=== PATIENT | male | born 1990 | race Caucasian/White ===

== ENCOUNTER 2018-06-12 14:15 | Emergency (ER) | payer SELFPAY ==
[2018-06-12 14:38] VITALS: BP 155/63
[2018-06-12] MEDS ORDERED: HYDROcodone/ACETAMIN 5-325 MG* 1 TAB PO ONE (14:46)
--- NOTE | 2018-06-12 14:46 | UC ---
Dental HPI - HPI Summary HPI Summary: pt c/o severe pain to his L lower tooth(points to anterior molar). states having episodes of pain to that tooth on and off for about 1-2 months. it became constant and severe last pm. taking tylenol with no relief. has another tooth pain to an upper tooth at times, unsure which tooth. no fever, headache or swelling. pt states he will have dental insurance the of year and plans to f/u then. - History of Current Complaint Chief Complaint: UCDentalProblem Stated Complaint: DENTAL PAIN Time Seen by Provider: 06/12/18 14:28 Hx Obtained From: Patient Pain Intensity: 10 - Allergies/Home Medications Allergies/Adverse Reactions: Allergies Allergy/AdvReac Type Severity Reaction Status Date / Time No Known Allergies Allergy Verified 06/12/18 14:33 PMH/Surg Hx/FS Hx/Imm Hx - Additional Past Medical History Additional PMH: " nervous tick" - Surgical History Surgical History: None - Family History Known Family History: Positive: Hypertension, Diabetes - Social History Alcohol Use: Occasionally Substance Use Type: None Smoking Status (MU): Never Smoked Tobacco Review of Systems All Other Systems Reviewed And Are Negative: Yes Constitutional: Positive: Negative Skin: Positive: Negative Eyes: Positive: Negative ENT: Positive: Dental Pain Respiratory: Positive: Negative Cardiovascular: Positive: Negative Gastrointestinal: Positive: Negative Genitourinary: Positive: Negative Motor: Positive: Negative Neurovascular: Positive: Negative Musculoskeletal: Positive: Negative Neurological: Positive: Negative Psychological: Positive: Negative Physical Exam Triage Information Reviewed: Yes Appearance: Pain Distress Vital Signs: Initial Vital Signs Temp 98.8 F 06/12/18 14:33 Pulse 73 06/12/18 14:33 Resp 18 06/12/18 14:33 BP 155/63 06/12/18 14:33 Pulse Ox 100 06/12/18 14:33 Vital Signs Reviewed: Yes Eyes: Positive: Conjunctiva Clear ENT: Positive: Pharynx normal, TMs normal. Negative: Nasal congestion, Nasal drainage Dental: Positive: Percussion Tenderness @ - Lateral L lower anterior molar only. Negative: Gross Decay/Caries @, Dental Fracture @, Abscess @ Neck: Positive: Supple, Nontender, No Lymphadenopathy Respiratory: Positive: Lungs clear, Normal breath sounds Cardiovascular: Positive: RRR, No Murmur Abdomen Description: Positive: Nontender, No Organomegaly, Soft Bowel Sounds: Positive: Present Musculoskeletal Exam: Normal Neurological: Positive: Alert Psychological: Positive: Age Appropriate Behavior Skin Exam: Normal Dental Complaint Course/Dx - Course Course Of Treatment: ISTOP= no prescriptions / narcotic prescriptions found. will cover for both pain and infection, need for dental f/u stressed and list of local providers given. - Differential Dx/Diagnosis Differential Diagnosis/Dx: Dental Abscess, Dental Caries, Fractured Tooth, Peridontic Disease Provider Diagnosis: Tooth ache Discharge - Sign-Out/Discharge Documenting (check all that apply): Patient Departure All imaging exams completed and their final reports reviewed: No Studies - Discharge Plan Condition: Stable Disposition: HOME Prescriptions: Amoxicillin PO (*) [Amoxicillin 500 MG CAP*] 500 mg PO TID 7 Days #21 cap HYDROcodone/ACETAMIN 5-325 MG* [Skipwith 5-325 TAB*] 1 tab PO Q6H PRN #15 tab MDD 4 PRN Reason: Pain - Severe Patient Education Materials: Toothache (ED) Referrals: No Primary Care Phys,NOPCP [Primary Care Provider] - Additional Instructions: FOLLOW UP WITH A DENTIST SOON POSSIBLE-LIST GIVEN - Billing Disposition and Condition Condition: STABLE Disposition: Home
[2018-06-12] MEDS ORDERED: Amoxicillin PO (*) 500 MG CAP PO ONE ×2 (14:47)
== END 2018-06-12 15:05 | disposition home or self-care (01) ==
LOC: UCCORT 14:15
DX: K08.89 Other specified disorders of teeth and supporting structures (principal)
CPT/HCPCS: 99213; A9270-GY; G0463

== ENCOUNTER 2019-02-22 17:00 | Emergency (ER) | payer OTHER ==
[2019-02-22 17:53] VITALS: BP 110/79
--- NOTE | 2019-02-22 18:31 | UC ---
Dental HPI - HPI Summary HPI Summary: 28 y/o male presents to the urgent care c/o RT lower dental pain and swelling around a molar filling on and off for the past 2 weeks. Symptoms worsen about 2 days ago w/ mild NASH. Pain w/ chewing is 4/10. Pt has jessica taking Tylenol PO to alleviate symptoms. Last dose taken was 1000mg PO around 1600pm w/ Oragel. Pt denies fever, trismus, dizziness, SOB, chest pain,a bdominal pain, N/V/D, sore throat. Pt has a Dentist appt next week. - History of Current Complaint Chief Complaint: UCDentalProblem Stated Complaint: TOOTH PAIN Time Seen by Provider: 02/22/19 18:07 Hx Obtained From: Patient Onset/Duration: Gradual Onset, Lasting Weeks - 2 weeks w/ on and off RT side lower dental pain, Still Present - today, Worse Since - 2 days ago Severity: Moderate Pain Intensity: 4 Pain Scale Used: 0-10 Numeric Aggravating Factor(s): Chewing Alleviating Factor(s): OTC Meds - tylenol PO last dose taken aroun [id number] - Allergies/Home Medications Allergies/Adverse Reactions: Allergies Allergy/AdvReac Type Severity Reaction Status Date / Time No Known Allergies Allergy Verified 02/22/19 17:50 PMH/Surg Hx/FS Hx/Imm Hx Previously Healthy: Yes - Pt denies PMHX - Surgical History Surgical History: None - Family History Known Family History: Positive: Hypertension, Diabetes - Social History Occupation: Employed Full-time Lives: With Family Alcohol Use: Occasionally Substance Use Type: None Smoking Status (MU): Never Smoked Tobacco Review of Systems All Other Systems Reviewed And Are Negative: Yes Constitutional: Positive: Negative Skin: Positive: Negative Eyes: Positive: Negative ENT: Positive: Dental Pain - Rt lower side dental pain w/ mild swelling around a filling Respiratory: Positive: Negative Cardiovascular: Positive: Negative Gastrointestinal: Positive: Negative Genitourinary: Positive: Negative Motor: Positive: Negative Neurovascular: Positive: Negative Musculoskeletal: Positive: Negative Neurological: Positive: Headache - mild Psychological: Positive: Negative Is Patient Immunocompromised?: No Physical Exam - Summary Physical Exam Summary: Vital Signs Reviewed: Yes General: Well-Appearing, Well-Nourished male sitting in the examining table w/ o any respiratory or pain distress Eyes: Positive: Conjunctiva Clear - PERRLA, EOMI, ENT: Positive: Normal ENT inspection, Hearing grossly normal, Pharynx normal, TMs normal - B/L external ear canals clear,. Negative: Tonsillar swelling, Tonsillar exudate, Trismus Dental: Positive: Gross Decay/Caries on molars #29 w/ a filling w/ gingival swelling and erythema, tender to percussion. involves tissue surrounding theses molars, w/ positive anterior Cervical Lymphadenopathy. Neck: Positive: Supple Respiratory: Positive: Chest non-tender, Lungs clear, Normal breath sounds, No respiratory distress Cardiovascular: Positive: RRR, No Murmur, Pulses Normal, Brisk Capillary Refill Abdomen Description: Positive: Nontender, No Organomegaly, Soft. Negative: CVA Tenderness (R), CVA Tenderness (L) Bowel Sounds: Positive: Present Musculoskeletal: Positive: Strength Intact, ROM Intact, No Edema Neurological Exam: Normal Psychological Exam: Normal Skin Exam: Normal Triage Information Reviewed: Yes Vital Signs: Initial Vital Signs Temp 98.7 F 02/22/19 17:50 Pulse 82 02/22/19 17:50 Resp 18 02/22/19 17:50 BP 110/79 02/22/19 17:50 Pulse Ox 99 02/22/19 17:50 Dental Complaint Course/Dx - Course Course Of Treatment: 28 y/o male presents to the urgent care c/o RT lower dental pain and swelling around a molar filling on and off for the past 2 weeks. Symptoms worsen about 2 days ago w/ mild NASH. Pain w/ chewing is 4/10. Pt has jessica taking Tylenol PO to alleviate symptoms. Last dose taken was 1000mg PO around 1600pm w/ Oragel. Pt denies fever, trismus, dizziness, SOB, chest pain,a bdominal pain, N/V/D, sore throat. Pt has a Dentist appt next week. Hx obtained. Pt with dental abscess around molar #29 w/ a molar filing on examination. Pt Rx Amoxicillin PO and Ibuprofen n PO for pain. Pt strongly advised to f/u with Dentist as soon as possible for further evaluation and treatment. D/C instructions explained. Pt understood and agreed with plan of care. Left the clinic ambulating. - Differential Dx/Diagnosis Differential Diagnosis/Dx: Dental Abscess, Dental Caries, Fractured Tooth, Odontogenic Pain, Peridontic Disease, Peritonsillar Abcess Provider Diagnosis: Dental abscess Discharge ED - Sign-Out/Discharge Documenting (check all that apply): Patient Departure - D/C home All imaging exams completed and their final reports reviewed: No Studies - Discharge Plan Condition: Stable Disposition: HOME Prescriptions: Amoxicillin PO (*) [Amoxicillin 500 MG CAP*] 500 mg PO TID #30 cap Ibuprofen TAB* [Motrin TAB* 800 MG] 800 mg PO Q6H PRN #30 tab PRN Reason: moderate pain Patient Education Materials: Dental Abscess (ED) Referrals: [facility] [place] [facility] [Outside] - 3 Days Additional Instructions: 1-Please take full course of antibiotics to avoid resistance. Take yogurts w/ probiotics or culturelle to protect GI system 2- Take Ibuprofen PO q6-8hrs prn as instructed after meals to alleviate pain and swelling. 3- F/u with your Dentist or Dental List provided as soon as possible for further treatment. 4- If symptoms do not improve or worsen please return to the urgent care or f/u with your PCP in 3 days for further evaluation and treatment - Billing Disposition and Condition Condition: STABLE Disposition: Home
== END 2019-02-22 18:41 | disposition home or self-care (01) ==
LOC: UCCORT 17:00
DX: K04.7 Periapical abscess without sinus (principal)
CPT/HCPCS: 99212; G0463